=== PATIENT | male | born 1935 | race Caucasian/White ===

== ENCOUNTER → 2019-05-05 11:43 | Emergency (ER) | payer MEDICARE, OTHER ==
[~2019-05-05 11:43] MED LIST: Cephalexin CAP* 500 MG PO ONE; ED cefTRIAXone 1 GM/50 ML 1 GM/50 ML PREMIX.SET IVPB ONE
[2019-05-05 12:19] LABS: ABS Basophils 0.1 10^3/ul (0-0.2); ABS Eosinophils 0.2 10^3/ul (0-0.6); ABS Lymphocytes 1.9 10^3/ul (1.0-4.8); ABS Monocytes 0.8 10^3/ul (0-0.8); ABS Neutrophils 6.5 10^3/ul (1.5-7.7); Eosinophil % 2.4 %; Hematocrit 38 % (42-52); Hemoglobin 12.7 g/dL (14.0-18.0); Lymphocyte % 20.4 %; Mean Corpuscular HGB Conc 34 g/dL (31-36); Mean Corpuscular Hemoglobin 30 pg (27-31); Mean Corpuscular Volume 91 fL (80-94); Mean Platelet Volume 7.3 fL (7.4-10.4); Platelet Count 196 10^3/uL (150-450); Red Blood Count 4.18 10^6 /uL (4.18-5.48); Red Cell Distribution Width 15 % (10-15); White Blood Count 9.5 10^3/uL (3.5-10.8)
--- NOTE | 2019-05-05 12:24 | ED ---
Neurological HPI - HPI Summary HPI Summary: This patient is a 84 year old M BIBA to ED via EMS with a chief complaint of facial twitching since two days ago. Patient had an unwitnessed seizure last night that lasted less than a minute (hx seizures). Patient was unconscious for about a minute. He did not get much sleep last night, and the twitching has spread to the upper body this morning. He states he cannot feel the twitching. Per son, patient is at neurologic baseline otherwise. Patient is sent here after consulting with Dr. Marrero, neurologist. Patient had a similar episode of twitching followed by seizure four years ago. He has recently stopped taking Klonopin 3 days ago as NH thought it was causing acute agitation. The patient rates the pain 0/10 in severity. Patient denies complaints. - History of Current Complaint Chief Complaint: EDNeurologicalDeficit Stated Complaint: SEIZURE PER EMS Time Seen by Provider: 05/05/19 11:52 Hx Obtained From: Patient, Family/Econometrics Professor Onset/Duration: Gradual Onset, Started days ago - 2 days ago, Still Present, Worse Since Timing: Constant Current Severity: Moderate Number of Seizures: 1 Neurological Deficit Location: Facial - Facial twitching Pain Intensity: 0 Pain Scale Used: 0-10 Numeric Character: Other: - Twitching/upper body twitching Aggravating: Nothing Alleviating: Nothing Associated Signs and Symptoms: Negative: Fever - Allergy/Home Medications Allergies/Adverse Reactions: Allergies Allergy/AdvReac Type Severity Reaction Status Date / Time amoxicillin Allergy Unknown Verified 05/05/19 12:25 Reaction Details ibuprofen Allergy Unknown Verified 05/05/19 12:25 Reaction Details Penicillins Allergy Unknown Verified 05/05/19 12:25 Reaction Details Home Medications: Home Medications Acetaminophen [Tylenol] 650 mg PO BID 05/05/19 [History Confirmed 05/05/19] Cetirizine HCl [Zyrtec] 10 mg PO DAILY 05/05/19 [History Confirmed 05/05/19] Cholecalciferol (Vitamin D3) [Vitamin D3] 2,000 unit PO DAILY 05/05/19 [History Confirmed 05/05/19] Fluticasone NASAL SPRAY 50MCG* [Flonase NASAL SPRAY 50MCG*] 2 spray BOTH NARES DAILY 05/05/19 [History Confirmed 05/05/19] Lactase [Dairy Aid] 3,000 unit PO TID 05/05/19 [History Confirmed 05/05/19] dilTIAZem HCl [Dilt-Xr] 180 mg PO DAILY 05/05/19 [History Confirmed 05/05/19] PMH/Surg Hx/FS Hx/Imm Hx Cardiovascular History: Reports: Hx Coronary Artery Disease, Hx Hypertension, Hx Pacemaker/ICD - X FEW YEARS History: Reports: Hx Kidney Stones - LT Musculoskeletal History: Reports: Hx Arthritis - GENERALIZED Sensory History: Reports: Hx Cataracts - BILATERAL, Hx Contacts or Glasses - GLASSES, Hx Hearing Aid - HAS AID, DOESN'T USE (GETS RINGING IN EARS) Opthamlomology History: Reports: Hx Cataracts - BILATERAL, Hx Contacts or Glasses - GLASSES Neurological History: Reports: Hx Seizures - 10/2014 ONLY ONE, NO MEDS, Other Neuro Impairments/Disorders - Alzheimer's - Surgical History Surgery Procedure, Year, and Place: 2011 LEFT KIDNEY STONE [facility]. 1960s APPENDECTOMY. RIGHT GREAT TOE. 2010 PACEMAKER [facility] Hx Anesthesia Reactions: No - Immunization History Date of Tetanus Vaccine: Yes, date unk Date of Influenza Vaccine: Fall 2012 Infectious Disease History: No Infectious Disease History: Denies: Traveled Outside the [place] in Last 30 Days - Family History Known Family History: Positive: Non-Contributory - Social History Alcohol Use: Daily Alcohol Amount: 2-4 glasses wine daily Hx Substance Use: No Substance Use Type: Reports: None Hx Tobacco Use: Yes Smoking Status (MU): Former Smoker Type: Cigarettes Have You Smoked in the Last Year: No Review of Systems Negative: Fever Neurological: Other - Facial/upper body twitching All Other Systems Reviewed And Are Negative: Yes Physical Exam - Summary Physical Exam Summary: Constitutional: Well-developed, Well-nourished, Alert. (-) Distressed Skin: Warm, Dry HENT: Normocephalic; Atraumatic Eyes: Conjunctiva normal Neck: Musculoskeletal ROM normal neck. (-) JVD Cardio: Rhythm regular, rate normal, Heart sounds normal; Intact distal pulses; Radial pulses are 2+ and symmetric. (-) Murmur Pulmonary/Chest wall: Effort normal. (-) Respiratory distress, (-) Wheezes, (-) Rales Abd: Soft. (-) Tenderness, (-) Distension, (-) Guarding, (-) Rebound Musculoskeletal: (-) Edema Lymph: (-) Cervical adenopathy Neuro: alert and oriented to person and place but not time. Intermittent facial and upper trunk twitching. Strength normal, Cranial nerves II-XII are grossly intact. SILT, Strength 5/5 BUE and BLE, (-) Dysmetria, (-) Nystagmus, ambulates w steady gait. Psych: Mood and affect Normal GCS: 14 Triage Information Reviewed: Yes Vital Signs On Initial Exam: Initial Vitals Temp Pulse Resp BP Pulse Ox 97.8 F 61 16 123/84 96 05/05/19 11:49 05/05/19 11:49 05/05/19 11:49 05/05/19 11:49 05/05/19 11:49 Vital Signs Reviewed: Yes Diagnostics - Vital Signs Vital Signs Temp Pulse Resp BP Pulse Ox 05/05/19 12:00 60 94 05/05/19 11:52 63 95 05/05/19 11:49 97.8 F 61 16 123/84 96 - Laboratory Result Diagrams: 05/05/19 12:12 05/05/19 12:11 Lab Statement: Any lab studies that have been ordered have been reviewed, and results considered in the medical decision making process. - Radiology CXR Radiology Interpretation Completed By: Radiologist Summary of Radiographic Findings: No radiographic evidence for acute cardiopulmonary abnormality on this. portable chest x-ray. Dr. Emerson has reviewed this radiology report. - CT Brain CT Interpretation Completed By: Radiologist Summary of CT Findings: Stable chronic findings as described above without acute intracranial. abnormality. Dr. Emerson has reviewed this radiology report. - EKG 1203 Cardiac Rate: NL - [address] Segment: Normal Summary of EKG Findings: Atrial-paced complexes at 62 BPM, no STEMI. No change from prior EKG taken 2014. Re-Evaluation - Re-Evaluation First Eval Re-Evaluation Time: 15:28 Comment: Discussed results with patient and Dr. Marrero's recommendations for treatment of the twitching. UA consistent with UTI, so I will treat with Keflex at home. Course/Dx - Course Course Of Treatment: 84-year-old gentleman with a history of Alzheimer's and seizures who presents with facial twitching. - Unwitnessed seizure with no reported head trauma however check head CT given age and comorbidities and unreliable neurologic exam. Will also check basic labs to rule out infection including urinalysis and a chest x-ray. Will consult with neurologist when studies are back. - No visible signs of trauma on the patient. Otherwise normal physical exam aside from some twitching of the face - Diagnoses Provider Diagnoses: UTI (urinary tract infection), Facial twitching - Physician Notifications Discussed Care Of Patient With: Glendy Marrero Time Discussed With Above Provider: 12:38 Instructed by Provider To: Other - Discussed patient case with Dr. Marrero, neurologist, who recommended holding off on the head CT because the patient is at baseline. We will touch base again once the patient's bloodwork comes back to discuss medications. At 1431 discussed patient case with Dr. Marrero who evaluated the patient in the ED and recommended changes to the patient's medication (250mg valproic acid and 0.5mg Klonopin). He stated to wait for the patient's urine before discharging since the patient will follow-up with Dr. Terry this week. Discharge - Sign-Out/Discharge Documenting (check all that apply): Patient Departure - Discharge Patient Received Moderate/Deep Sedation with Procedure: No - Discharge Plan Condition: Stable Disposition: HOME Prescriptions: Cephalexin CAP* [Keflex CAP*] 500 mg PO QID 7 Days #28 cap clonazePAM [Klonopin] 0.5 mg PO EVERY OTHER DAY 14 Days #4 tablet MDD 1/2 tab Valproic Acid 250 mg PO QPM 30 Days #30 capsule Patient Education Materials: Urinary Tract Infection in Men (ED), Epilepsy (ED) Referrals: Stefania Diaz MD [Primary Care Provider] - 3 Days Additional Instructions: Please take 250 mg of valproic acid at night, and 0.5 mg of Klonopin every other day for 2 weeks Your labs showed a urinary tract infection, take keflex 500 four times a day for 7 days Follow up with primary care provider in 2-3 days. RETURN TO THE EMERGENCY DEPARTMENT WITH ANY NEW OR WORSENING SYMPTOMS. - Billing Disposition and Condition Condition: STABLE Disposition: Home - Attestation Statements Document Initiated by Scribe: Yes Documenting Scribe: Javon Lee Provider For Whom Danyibe is Documenting (Include Credential): Faith Emerson MD Scribe Attestation: Javon Alegre, scribed for Faith Emerson MD on 05/05/19 at 1714. Scribe Documentation Reviewed: Yes Provider Attestation: The documentation as recorded by the scribe, Javon Lee accurately reflects the service I personally performed and the decisions made by me, Faith Emerson MD Status of Scribe Document: Viewed
[2019-05-05 12:37] LABS: Albumin 4.1 g/dL (3.2-5.2); Albumin/Globulin Ratio 1.6 (1-3); BUN/Creatinine Ratio 16.7 (8-20); Calcium 9.6 mg/dL (8.6-10.3); EGFR African American 49.4 (>60); EGFR Non-African American 40.8 (>60); Globulin 2.5 g/dL (2-4); Potassium 4.5 mmol/L (3.5-5.0); Total Bilirubin 0.5 mg/dL (0.2-1.0); Total Protein 6.6 g/dL (6.4-8.9)
[2019-05-05 15:15] LABS: Urine Appearance Clear; Urine Bacteria Absent (Absent); Urine Bilirubin Negative (Negative); Urine Blood Negative (Negative); Urine Color Yellow; Urine Glucose Negative (Negative); Urine Ketones Negative (Negative); Urine Nitrite Positive (Negative); Urine Protein Negative (Negative); Urine Red Blood Cell Absent (Absent); Urine Specific Gravity 1.019 (1.010-1.030); Urine Urobilinogen Negative (Negative); Urine White Blood Cell 2+(11-20/hpf) (Absent)
[2019-05-05 15:24] LABS: TSH (Thyroid Stimulating Horm) 1.73 mcIU/mL (0.34-5.60)
[2019-05-05 16:27] VITALS: BP 104/60
--- NOTE | 2019-05-06 01:16 | CONS ---
NEUROLOGY CONSULTATION NOTE: DATE OF CONSULT: 05/05/19 CONSULTING PROVIDER: Dr. Faith Emerson. REASON FOR CONSULT: Possible seizure and facial twitching. CHIEF COMPLAINT: Seizure that took place yesterday. HISTORY OF PRESENT ILLNESS: Mr. 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 The history was mostly obtained from the patient's son, Emmie, and the patient's daughter, Thelma. I personally spoke to Thelma earlier this morning and recommended to bring the patient into the ER for further evaluation. I also reviewed the medical records at [facility] where the patient was being closely followed by Dr. Jaquez and then transferred care to Dr. Terry. The patient was at [facility] for the past one year. He had an episode yesterday where he had generalized body shaking, loss of awareness, worsening confusion for approximately 15 minutes. I spoke to Marleny, who is the nurse at [facility]. She stated that this is completely out of the ordinary for him and this is not the typical twitching that he occasionally has. The nursing staff are convinced that they witnessed a seizure that lasted approximately one minute, followed by postictal confusion that lasted for approximately 15 minutes. There was some reported generalized convulsion, but it was not clear. There was no history of loss of bowel or bladder functions. The patient otherwise seemed to be back to his baseline status. Last night, the family decided not to take him to the ER and continue observing him after the seizure- like episode. However, the patient was reported to have trouble sleeping throughout the night, and woke up with continuous twitching of the extremities and the face. This is the same twitching he had in the past, explained by Dr. Jaquez's previous evaluation. I reviewed the records from [facility] where the patient had facial twitching and was fighting in his sleep starting in 2014, and that is when he was started on Klonopin. Since then, the patient was taking Klonopin 1 mg nightly. However, for the past 3 months, the nursing facility staff members have noticed that he has significant behavioral problems when taking Klonopin. He has severe insomnia, agitation, and irritability. When holding the Klonopin dose at nighttime, the patient was able to sleep without any distress. Therefore, with the guidance of Dr. Terry, weaning off Klonopin was initiated three weeks ago. The patient started taking 1 mg tablet at night every other day for 1 week and then 0.5 mg every 1 week. He was completely off Klonopin 6 days ago. Since then, the patient has been sleeping well without any distress. However, last night due to the possible seizure, the patient had increase insomnia and twitching throughout his extremities. Today, the patient continues to have stimulus-induced facial twitching, but was able to communicate throughout the muscle movements. He has myoclonus in both upper extremities. He reports no distress and states "I am feeling fine." The patient has also been complaining of a 3- to 4-month history of neck tension and pain. The pain is worse at nighttime. He has been receiving acetaminophen with [id number] improvement. There has been no reported falls or loss of consciousness. Seizure history: the patient has history of a single seizure 10 years ago where he did not require treatment. He had a normal EEG four years ago. He has not had any further seizure activity. He has no history of meningitis or encephalitis. PAST MEDICAL HISTORY: Alzheimer's, allergies, hypertension, and neck pain. History of cataracts, he wears sunglasses. He has history of kidney stones. He has history of coronary artery disease, pacemaker ICD placement, hearing aids. HOME MEDICATIONS: 1. Pravastatin 80 mg p.o. at bedtime. 2. Fluoxetine 20 mg p.o. in the morning. 3. Aspirin 81 mg p.o. in the morning. 4. Allopurinol 300 mg p.o. in the morning. 5. Lisinopril 20 mg p.o. a.m. 6. Metoprolol 25 mg p.o. in the morning. 7. Memantine 10 mg p.o. b.i.d. 8. Diltiazem 180 mg p.o. daily. 9. Vitamin D3 2000 units p.o. daily. 10. Acetaminophen 650 mg daily. 11. Cetirizine 10 mg p.o. daily. FAMILY HISTORY: There is no family history reported for seizures or strokes. SOCIAL HISTORY: The patient is . He denied any tobacco or alcohol use. REVIEW OF SYSTEMS: A 14-point review of systems was otherwise negative, except for what was mentioned in the HPI. PHYSICAL EXAM: Vitals: Please note that the patient has multiple documented hypotension during this hospitalization. Blood pressure currently is 101/57. General: Ill-appearing elderly man, in no acute distress. Pleasantly demented. Head: Atraumatic, normocephalic. Neck: No nuchal rigidity. No lymphadenopathy. No carotid bruits. Neck is supple. Eyes: Conjunctivae/ corneas are clear. Chest: Clear to auscultation bilaterally with no wheezing or rhonchi. Cardiovascular: Regular rate and rhythm with normal S1 and S2. Extremities: Normal range of motion, with no hammertoes or high arches. Skin: No skin lesions or laceration. Psych: Flat affect, normal mood. Difficult to establish rapport given his dementia. He looked at my identification card and said "you have an interesting name." Neurological Examination: Alert, awake, and oriented to self and son, but not place or time. He has severe psychomotor slowing. His last MoCA completed in 2014 was as low as 15/30 due to significant delayed recall and executive dysfunction. Cranial Nerves: Pupils are equal, round, and reactive to light. Extraocular muscles are intact. No facial asymmetry. Tongue is symmetric and midline, with no atrophy or fasciculation. Motor Examination: 5/5 strength with normal tone and bulk. No asterixis. Reflexes are trace throughout the upper and lower extremities, 0 at the ankles bilaterally. Flexor Babinski responses. Sensation is intact to light touch. No tactile extinction. Coordination: Normal mbsdyx-mi-soce bilaterally. Gait was not assessed, but the patient does ambulate at baseline without assistance. DIAGNOSTIC STUDIES/LAB DATA: WBC of 9.5, hemoglobin of 12, hematocrit of 38, platelet count of 196. Sodium of 135, potassium 4.5, chloride of 101, BUN of 27 , creatinine 1.62. Urinalysis is pending. CT head without contrast showed chronic severe generalized atrophy with no evidence of hypodensity on either hemispheres. The patient has significant stenosis in the upper cervical spinal canal, which could be contributing to his neck pain. ASSESSMENT AND RECOMMENDATION: Mr. Sandro Ochoa is an 84-year-old man with history of end-stage Alzheimer's dementia, who has baseline myoclonus and facial twitching, who presented with witnessed seizure-like activity yesterday and increase in agitation and insomnia. 1. Episode of seizure like-activity and possible brief generalized convulsion: - The event lasted about one minute with some post-ictal confusion - The patient is at risk for developing seizures given the following factors: a. benzodiazepine withdrawal which can occur weeks after discontinuing the Klonopin; b. cerebral atrophy due to Alzheimer's disease; c. history of previously reported seizures of unknown etiology. - He has no evidence of electrolyte imbalance. We are waiting on a urinalysis to assess if he has any evidence of UTI. - CT head without contrast showed no evidence of a structural abnormality. He has severe diffuse cortical atrophy. 2. Increase in agitation and insomnia: - The nursing staff is convinced that Klonopin is the culprit. The patient is calm when Klonopin is not given. - Other differential diagnosis would be a UTI causing increase in agitation, seizures, pain induced, or progression in his dementia. 3. Severe upper cervical spinal stenosis seen on CT head: - Discussed this with the patient's son at bedside. The patient would not be a candidate for any further intervention. We discussed fall precautions. Hold off on any further work-up at this point. Defer pain control to the primary team. 4. Facial twitching and myoclonus: related to endstage Alzheimer's vs medication effect/withdrawal. Seizures are low on the differential given he is able to verbalize and communicate during these episodes. These abnormal movements are also dependent on stimulation (stimulus induced). Recommendations: - Restart Klonopin at a dose of 0.5 mg nightly every other night for the next 2 weeks. Continue weaning the Klonopin since there are reports of severe agitation and insomnia with the Klonopin over the past few weeks. - Start valproic acid 250 mg at night to help with some of his sundowning and to prevent further seizures related to benzodiazepine withdrawal. This is a low subtherapeutic dose and will need some adjustment, depending on how the patient tolerates the medication. - Ordered B12 and TSH to rule out metabolic causes of Delirium - Obtain an EEG as an outpatient. The patient is awake and appropriately responsive and not complaining of any distress, and all during the facial twitching and mild myoclonus. - Pending urinalysis. Defer treatment to the ED staff if it is positive - If he continues to have these abnormal movements after resuming Klonopin, I advised the family to have the patient come back for further evaluation - Follow-up with Dr. Terry. He has an upcoming appointment next week. Time spent: 65 minutes of which >50% was spent obtaining history, examining the patient, education and counseling, obtaining collateral information from Marleny ( nurse at the nursing facility), and updating the patient's family at bedside. [id number]/CPS #: [id number] PIPPA
== END | disposition home or self-care (01) ==
LOC: ED 11:43
DX: R25.3 Fasciculation (principal); N39.0 Urinary tract infection, site not specified; Z88.1 Allergy status to other antibiotic agents; Z88.0 Allergy status to penicillin; Z88.8 Allergy status to other drugs, medicaments and biological substances; Z79.899 Other long term (current) drug therapy; I25.10 Atherosclerotic heart disease of native coronary artery without angina pectoris; I10 Essential (primary) hypertension; Z95.0 Presence of cardiac pacemaker; Z87.891 Personal history of nicotine dependence; G30.9 Alzheimer's disease, unspecified; F02.80 Dementia in other diseases classified elsewhere, unspecified severity, without behavioral disturbance, psychotic disturbance, mood disturbance, and anxiety
CPT/HCPCS: 36415; 70450; 71045; 80053; 81003; 81015; 82607; 84443; 84484; 85025; 87086; 93005; 99284; A9270-GY

== ENCOUNTER 2019-05-24 11:52 | Inpatient (IN) | payer MEDICARE, OTHER ==
--- NOTE | 2019-05-24 12:02 | ED ---
Abdominal Pain/Male - HPI Summary HPI Summary: An 84 y/o male w hx dementia and seizurse who presents to [facility] with a chief complaint of abdominal pain since this morning. Patient is a poor historian 2/ 2 dementia and states pain isn't extremely bad but there is some discomfort. He rates his pain as a 3/10 in severity. He denies any vomiting, diarrhea, fevers, chest pain, back pain or dysuria. He denies a SHx on his abdomen. He does not have worsened pain with eating, no RUQ pain. The patient is disoriented to year which is baseline for him. Hx of facial tremors/adominal tremors previously on klonopin. - History of Current Complaint Stated Complaint: ABD PAIN Time Seen by Provider: 05/24/19 11:54 Hx Obtained From: Patient, EMS Onset/Duration: Sudden Onset, Lasting Hours, Still Present Timing: Constant Severity Initially: Mild Severity Currently: Mild Pain Intensity: 3 Pain Scale Used: 0-10 Numeric Location: Diffuse Radiates: No Character: Other: - unable to describe Aggravating Factor(s): Nothing Alleviating Factor(s): Nothing Associated Signs And Symptoms: Negative: Fever, Back Pain, Urinary Symptoms, Vomiting, Diarrhea - Allergies/Home Medications Allergies/Adverse Reactions: Allergies Allergy/AdvReac Type Severity Reaction Status Date / Time amoxicillin Allergy Unknown Verified 05/05/19 12:25 Reaction Details ibuprofen Allergy Unknown Verified 05/05/19 12:25 Reaction Details Penicillins Allergy Unknown Verified 05/05/19 12:25 Reaction Details Home Medications: Home Medications Metoprolol Succinate XL TAB* [Toprol XL TAB*] 25 mg PO DAILY 05/24/19 [History Confirmed 05/24/19] Phenol [Chloraseptic] 177 ml PO DAILY PRN 05/24/19 [History Confirmed 05/24/19] Saline NASAL SPRAY 0.65%* [Sodium Chloride 0.65% Nasal [place]*] 1 spray BOTH NARES Q4H PRN 05/24/19 [History Confirmed 05/24/19] PMH/Surg Hx/FS Hx/Imm Hx Cardiovascular History: Reports: Hx Coronary Artery Disease, Hx Hypertension, Hx Pacemaker/ICD - X FEW YEARS History: Reports: Hx Kidney Stones - LT Musculoskeletal History: Reports: Hx Arthritis - GENERALIZED Sensory History: Reports: Hx Cataracts - BILATERAL, Hx Contacts or Glasses - GLASSES, Hx Hearing Aid - HAS AID, DOESN'T USE (GETS RINGING IN EARS) Opthamlomology History: Reports: Hx Cataracts - BILATERAL, Hx Contacts or Glasses - GLASSES Neurological History: Reports: Hx Seizures - 10/2014 ONLY ONE, NO MEDS, Other Neuro Impairments/Disorders - Alzheimer's - Surgical History Surgery Procedure, Year, and Place: 2011 LEFT KIDNEY STONE [facility]. 1960s APPENDECTOMY. RIGHT GREAT TOE. 2010 PACEMAKER [facility] Hx Anesthesia Reactions: No - Immunization History Date of Tetanus Vaccine: Yes, date unk Date of Influenza Vaccine: Fall 2012 - Family History Known Family History: Positive: Non-Contributory - Social History Alcohol Use: Daily Alcohol Amount: 2-4 glasses wine daily Hx Substance Use: No Substance Use Type: Reports: None Hx Tobacco Use: Yes Smoking Status (MU): Former Smoker Type: Cigarettes Have You Smoked in the Last Year: No Review of Systems Negative: Fever Negative: Chest Pain Positive: Abdominal Pain. Negative: Vomiting, Diarrhea, Nausea Negative: dysuria Negative: Myalgia All Other Systems Reviewed And Are Negative: Yes Physical Exam - Summary Physical Exam Summary: Constitutional: Well-developed, Well-nourished, Alert. (-) Distressed Skin: Warm, Dry HENT: Normocephalic; Atraumatic Eyes: Conjunctiva normal Neck: Musculoskeletal ROM normal neck. (-) JVD, (-) Stridor, (-) Nuchal rigidity Cardio: Rhythm regular, rate normal, Heart sounds normal; Intact distal pulses; Radial pulses are 2+ and symmetric. (-) Murmur Pulmonary/Chest wall: Effort normal. (-) Respiratory distress, (-) Wheezes, (-) Rales Abd: Soft, Epigastric tenderness, (-) Distension, (-) Guarding, (-) Rebound, twitching of abdominal muscles Musculoskeletal: (-) Edema Lymph: (-) Cervical adenopathy Neuro: oriented to person and place not time, intermittent tremors and facial twitching Psych: Mood and affect Normal Triage Information Reviewed: Yes Vital Signs Reviewed: Yes Diagnostics - Laboratory Result Diagrams: 05/24/19 12:19 05/24/19 12:21 Lab Statement: Any lab studies that have been ordered have been reviewed, and results considered in the medical decision making process. - CT abdomen/pelvis CT Interpretation Completed By: Radiologist Summary of CT Findings: LEFT NEPHROLITHIASIS WITHOUT HYDRONEPHROSIS. ATHEROSCLEROSIS. ED physician has reviewed this imaging report. - EKG 12:13 Cardiac Rate: Other Rate - Atrial paced at 60 bpm Summary of EKG Findings: An EKG at 12:13 reveals atrial paced at 60 bpm. Re-Evaluation - Re-Evaluation First Eval Re-Evaluation Time: 14:50 Change: Unchanged Comment: CT shows 0.7 Cm left kidney stone without hydronephrosis, Pt still has persistent twitching, will consult neurology. Suspect pain 2/2 abdominal contraction not kidney stone. Abdominal Pain Male Course/Dx - Course Course Of Treatment: 84 y/o male w seizures, dementia who p/w Eepigastric abdominal pain. - PE epigastric abdominal tenderness, intermittent twitching of abdominal muscles otherwise unremarkable exam. Check labs including CBC to assess for infection, lipase for pancreatitis. Also consider renal stone given microscopic hematuria. Low suspicion SBO given multiple bowel movements. Consider infectious process as diverticulitis however patient denies fevers or diarrhea at this time. UA w/o WBC. also will touch base allergy given increase in facial twitching/concern for seizures - Diagnoses Provider Diagnoses: Seizures, Abdominal pain - Provider Notifications Discussed Care Of Patient With: Josef Stanford Time Discussed With Above Provider: 14:52 Instructed by Provider To: Other - concern that patient could be in status, Dr. Stanford will see the patient in the ED. Discharge - Sign-Out/Discharge Documenting (check all that apply): Patient Departure - admit Patient Received Moderate/Deep Sedation with Procedure: No - Discharge Plan Condition: Fair Disposition: ADMITTED TO [facility] Referrals: Stefania Diaz MD [Primary Care Provider] - - Billing Disposition and Condition Condition: FAIR Disposition: Admitted to [facility] - Attestation Statements Document Initiated by Scribe: Yes Documenting Scribe: Steven Ramirez Provider For Whom Louis is Documenting (Include Credential): Faith Emerson MD Scribe Attestation: Steven Alegre, scribed for Faith Emerson MD on 05/24/19 at 1557. Scribe Documentation Reviewed: Yes Provider Attestation: The documentation as recorded by the marileeibSteven boo accurately reflects the service I personally performed and the decisions made by me, Faith Emerson MD Status of Scribe Document: Viewed Consult Consult: At 15:[address] Dickey, hospitalist, who accepted the patient for admission.
[2019-05-24 12:43] LABS: Urine Appearance Clear; Urine Bacteria Absent (Absent); Urine Bilirubin Negative (Negative); Urine Blood Negative (Negative); Urine Color Yellow; Urine Glucose Negative (Negative); Urine Ketones Negative (Negative); Urine Nitrite Positive (Negative); Urine Protein Negative (Negative); Urine Red Blood Cell 3+(>10/hpf) (Absent); Urine Specific Gravity 1.016 (1.010-1.030); Urine Urobilinogen Negative (Negative); Urine White Blood Cell Trace(0-5/hpf) (Absent)
[2019-05-24 13:02] LABS: ABS Eosinophils 0.3 10^3/ul (0-0.6); ABS Lymphocytes 1.6 10^3/ul (1.0-4.8); ABS Monocytes 0.7 10^3/ul (0-0.8); ABS Neutrophils 5.2 10^3/ul (1.5-7.7); Eosinophil % 4.1 %; Hematocrit 38 % (42-52); Hemoglobin 12.7 g/dL (14.0-18.0); Lymphocyte % 20.7 %; Mean Corpuscular HGB Conc 34 g/dL (31-36); Mean Corpuscular Hemoglobin 31 pg (27-31); Mean Corpuscular Volume 91 fL (80-94); Mean Platelet Volume 7.5 fL (7.4-10.4); Platelet Count 186 10^3/uL (150-450); Red Blood Count 4.15 10^6 /uL (4.18-5.48); Red Cell Distribution Width 15 % (10-15); White Blood Count 7.8 10^3/uL (3.5-10.8)
[2019-05-24 13:13] LABS: Albumin 4.1 g/dL (3.2-5.2); Albumin/Globulin Ratio 1.8 (1-3); BUN/Creatinine Ratio 16.8 (8-20); C Reactive Protein 3.85 mg/L (<8.01); Calcium 8.9 mg/dL (8.6-10.3); EGFR African American 66.6 (>60); Globulin 2.3 g/dL (2-4); Total Bilirubin 0.5 mg/dL (0.2-1.0); Total Protein 6.4 g/dL (6.4-8.9)
[2019-05-24] MEDS ORDERED: Iodixanol* (CONTRAST) 320 MG/ML 100 ML SDV IV ONE (13:48)
[2019-05-24] MEDS ORDERED: clonazePAM TAB(*) 0.5 MG PO ONE ×2 (14:51→15:54)
[2019-05-24] MEDS ORDERED: Lorazepam PYXIS KEY PRN ×3 (15:29→20:19)
[2019-05-24] MEDS ORDERED: LORazepam INJ* 2 MG/ML 1 ML VIAL IV PUSH ONE ×2 (15:29→20:19)
[2019-05-24] MEDS ORDERED: Divalproex ER TAB(*) 250 MG PO ONE (15:41)
[2019-05-24] MEDS ORDERED: LORazepam INJ* 2 MG/ML 1 ML VIAL IV PUSH PRN ×2 (15:44→20:19)
[2019-05-24] MEDS ORDERED: Valproic Acid IV(*) 250 MG in NS 0.9% 100 ML* 100 ML IVPB ONE (15:51)
[2019-05-24] MEDS ORDERED: Ondansetron INJ* 2 MG/ML VIAL IV PRN (16:26)
[2019-05-24] MEDS ORDERED: Acetaminophen TAB* 325 MG PO PRN (16:26)
[2019-05-24] MEDS ORDERED: Saline NASAL SPRAY 0.65%* BTL BOTH NARES PRN (16:27)
[2019-05-24] MEDS ORDERED: Cyanocobalamin INJ * 1,000 MCG/ML VIAL 1 ML VIAL IM ONE (16:56)
[2019-05-24] MEDS ORDERED: Enoxaparin(*) 40 MG/0.4 ML SYR SUBCUT SCH (18:00)
--- NOTE | 2019-05-24 18:48 | HP ---
CC: Dr. Stefania Diaz; Dr. Moris Stanford * ADMISSION HISTORY AND PHYSICAL: DATE OF ADMISSION: 05/24/19 PRIMARY CARE PROVIDER: Dr. Stefania Diaz. MY ATTENDING WHILE IN THE HOSPITAL: Dr. Marisela Selby.* (DICTATED BY KADI MEZA) CONSULTING NEUROLOGIST: Dr. Moris Stanford. CHIEF COMPLAINT: Seizures x1 day. HISTORY OF PRESENT ILLNESS: Mr. Ochoa is an 84-year-old male with a past medical history of Alzheimer dementia; seizure disorder; coronary artery disease ; tachybrady syndrome, status post pacemaker; and atrial tachycardia syndrome, who presents to the emergency department for the second time in 2 weeks. The patient presented to the emergency department on 05/05/19 for a convulsion that had generalized body shaking and loss of awareness and worsening confusion for approximately 1 minute that occurred on 05/04/19. The patient had recently been weaned off of his Klonopin, which he has been on since 2014. He has only been off Klonopin for 6 days. The patient while he was brought into the hospital, started on a low dose Depakote at night after being seen in consultation by Dr. Glendy Marrero of Neurology, had a negative brain CT. This controlled the patient's seizures for approximately 2 weeks since then, but then this morning, the patient woke up and was having numerous episodes of facial twitching with some episodes of spasming down his body and into his abdomen. The patient had been feeling in his normal state of health. The patient had no illnesses. No fevers, chills, abdominal pain, or diarrhea. The patient's only other complaint is neck pain. The patient's twitching did not improve and he was sent to the emergency department for further evaluation. In the emergency department, the patient was seen in consultation by Dr. Moris Stanford of Neurology, who recommended EEG, which was performed showing ongoing seizure activity and recommended doubling up the patient's Depakote dose , giving IV Depakote now, and admitting to the ICU for close neurologic checks with p.r.n. Ativan for worsening generalized seizures. Due to concern for status epilepticus, we were asked to evaluate the patient for admission to the hospital. PAST MEDICAL HISTORY: Alzheimer dementia; hypertension; neck pain; cataracts; nephrolithiasis; coronary artery disease; tachy-alberto syndrome, status post pacemaker; thoracic aortic aneurysm; atrial tachycardia. PAST SURGICAL HISTORY: Pacemaker/ICD implantation, cardiac catheterization with stent placement. MEDICATIONS: 1. Pravastatin 80 mg p.o. at bedtime. 2. Fluoxetine 20 mg p.o. daily. 3. Aspirin 81 mg p.o. daily. 4. Zyloprim 300 mg p.o. daily. 5. Lisinopril 20 mg p.o. daily. 6. Memantine 10 mg p.o. b.i.d. 7. Diltiazem 180 mg p.o. daily. 8. Vitamin D3 2000 units p.o. daily. 9. Lactase 3000 units p.o. t.i.d. 10. Tylenol 650 mg p.o. b.i.d. 11. Fluticasone 2 sprays both nares daily. 12. Cetirizine 10 mg p.o. daily. 13. Valproic acid 250 mg p.o. daily. 14. Saline nasal spray 1 spray both nares q.4 hours as needed. 15. Metoprolol succinate 25 mg p.o. daily. 16. Chloraseptic 177 mL p.o. daily as needed. ALLERGIES: AMOXICILLIN, IBUPROFEN, PENICILLINS. FAMILY HISTORY: The patient's mother of old age at 102. The patient's father in his 50s of a stroke. The patient has 2 sisters, who of Alzheimer's complications. SOCIAL HISTORY: The patient smoked a pipe infrequently throughout his life. The patient drinks occasional alcohol. Never known to have illicit drug use. 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 The patient is for 2 years now, and has 2 children. The patient's surrogate decision maker will be his son MITCHELL REVIEW OF SYSTEMS: A 14-point review of systems was reviewed and is negative except as above in the HPI. PHYSICAL EXAMINATION GENERAL: The patient is an 84-year-old male, who appears stated age and sitting in the bed with intermittent twitching of his face. VITAL SIGNS: Temperature 97.9, pulse rate 61, respiratory rate 16, oxygen saturation 94% on room air, blood pressure 108/62. HEENT: Head: Normocephalic, atraumatic. Sclerae anicteric. No conjunctival injection. Nasal mucosa moist. Oral mucosa moist. No pharyngeal erythema, discharge, or exudate. NECK: Supple, nontender. No lymphadenopathy. No carotid bruits auscultated. No JVD. RESPIRATORY: Clear to auscultation bilaterally. No wheezes, rales, or rhonchi. Good air exchange bilaterally. CARDIAC: Regular rate and rhythm. No clicks, murmurs, gallops, or rubs. Pulses are 2+ in the bilateral dorsalis pedis, posterior tibialis, and radial areas. ABDOMEN: Soft, nontender, nondistended. Bowel sounds present and normoactive in all 4 quadrants. No hepatosplenomegaly. No abdominal bruits auscultated. No hepatojugular reflux. GENITOURINARY: No suprapubic or CVA tenderness. NEURO: Cranial nerves II through XII intact. Almost constant involuntary movements around the mouth. No other focal deficits. Alert and oriented only to self. PSYCHIATRIC: Pleasant and cooperative. SKIN: Clean, dry, and intact. No rash. DIAGNOSTIC STUDIES/LAB DATA: White blood cell count 7.8, hemoglobin 12.7, platelet count 186. Sodium 135, potassium 4.0, chloride 101, carbon dioxide 29 , anion gap 5, BUN 21, creatinine 1.25, glucose 114, calcium 8.9. Bilirubin 0.5 , AST 19, ALT 23, alkaline phosphatase 50. Troponin I 0.01. CRP 3.85. Protein 6.4, albumin 4.1, globulin 2.3, lipase 4.6. Urine: Yellow, clear, positive nitrite, trace leukocyte esterase, 3+ red blood cells. Studies: Abdomen and pelvis CT read as left nephrolithiasis without hydronephrosis, atherosclerosis. EKG shows atrial paced rhythm. No ST segment elevation or depression. No hypertrophy or enlargement. Normal axis. Compared to previous exam, there are no significant changes. ASSESSMENT AND PLAN: Impression: Mr. Ochoa is an 84-year-old male with past medical history significant for seizure disorder; Alzheimer dementia; hypertension; coronary artery disease; tachy-alberto syndrome, status post pacemaker implantation, who presents to the emergency department for the second time in 2 weeks for seizures. The patient was found to be in partial status epilepticus and will be admitted to the ICU for close monitoring. 1. Partial status epilepticus. The patient has almost constant seizure activity involving mainly the muscles around his mouth. This was confirmed by EEG in the emergency department. The patient will be admitted to the ICU, will have frequent neurologic checks. The patient has been given Depakote IV, Klonopin p.o. and Ativan IV, which have significantly decreased the frequency and severity of his seizures. The patient will be transitioned to Depakote orally b.i.d. as well as Klonopin 0.5 mg p.o. b.i.d. The patient will have valproic acid level checked now and further escalation to his dose may be needed. The patient will have Ativan as needed for uncontrollable seizure activity. The patient had a negative brain CT 2 weeks ago and Neurology does not recommend repeat brain CT at this time. The patient has no signs of infection at this time or other reversible provoking factors for his seizure. 2. Alzheimer's dementia. Supportive care. Continue memantine and Aricept. 3. Hypertension. The patient is currently normotensive. Continue lisinopril and metoprolol. 4. Coronary artery disease. Continue pravastatin, aspirin, and metoprolol. 5. Thoracic aortic aneurysm. No signs of dissection at this time. 6. FEN: The patient will have a heart-healthy diet without caffeine. Fluids are not indicated at this time. 7. Disposition: The patient is admitted to the hospital observation. 8. Code status: The patient would like to be a full code. The patient's surrogate decision maker will be his son. TIME SPENT: Approximately 60 minutes was spent on the admission of this patient , 30 of which was spent [id number] with the patient obtaining history and physical and discussing treatment plan. This plan was discussed with my attending, Dr. Marisela Selby, and she is in agreement. KADI MEZA [id number]/[facility] #: [id number] PIPPA
--- NOTE | 2019-05-24 19:30 | CONS ---
CC: Dr. Stefania Diaz; Dr. Antony Terry * CONSULTATION REPORT: DATE OF CONSULT: 05/24/19 LOCATION: Currently in ER bed 7. PRIMARY CARE PHYSICIAN: Stefania Diaz MD NEUROLOGIST: Dr. Antony Terry. REASON FOR CONSULT: Seizure-like activity. HISTORY OF PRESENT ILLNESS: Mr. Ochoa is a very nice 84-year-old gentleman who has a history of a seizure disorder diagnosed and treated by Dr. Jaquez for years, currently being treated by Dr. Terry. He has had one reported generalized tonic-clonic seizure about 10 years ago and had some additional seizure-like activity in the recent weeks. For years, he was treated with Klonopin 1 mg at night but the staff where he was living feels that that may have been changing his sleep habits and making him more agitated, affecting his mood. His son spoke with Dr. Terry and they decided to try weaning him off of the Klonopin very slowly, which was started several weeks ago. Initially, he tolerated the wean well, but on 05/04/19, he had an episode that sounds like a generalized tonic-clonic seizure where he lost awareness, was shaking in his entire body and was confused for approximately 15 minutes. There was no reported loss of bladder or bowel control and after he returned to his baseline , the family decided to watch him there. The next morning, he got up and was having more significant twitching that was similar to the twitching that he had had in the past. At the time that he was seen in the ER on 05/05/19, he has been off of the Klonopin for about a week. At that time, Dr. Marrero saw him in the ER and felt like he was having some myoclonic facial twitching. He decided to restart the Klonopin at 0.5 mg nightly every other night for 2 weeks and he also put him on a low dose of valproic acid 250 mg at night to help with some of his sundowning and to prevent further seizures related to benzodiazepine withdrawal. He ordered a B12 and TSH to rule out metabolic causes of delirium and he also was going to get an EEG as an outpatient. Initially after starting the Depakote, the patient did well. About a week ago, he finally finished Klonopin taper and for the last week, has done fairly well with no significant twitching. This morning, the family noticed that he was starting to have much more twitching and in fact, the twitching seemed to involve his entire body at times. He noted to his son that he was having neck pain related to the twitching and because of the tensing up, he was having some abdominal pain as well. These were happening quite frequently and at times, the son states that there were more generalized and the patient seemed to be out of it during the episode and could not remember the episode. While I was interviewing the patient, he had multiple episodes and my concern was that he might be in subclinical status. He was answering some questions appropriately, but he does have baseline dementia. I ordered a stat EEG, which was done; it did in fact show intermittent seizure activity associated with the facial twitching and body twitching. I gave him 1 mg of Ativan, which slowed the seizure activity on EEG, although he continued to have some mild twitching. At that time, I decided to give him 1 time dose of Depakote 250 mg IV. I spoke with the son and we decided at this point to try to adjust his medications. At the time that I left the ER, he was better having very rare facial twitches and was responsive and talking. The son states that his baseline dementia is fairly significant. He is oriented to person only. His son notes no prior history of head trauma or issues. No history of meningitis and no family history of seizures that he is aware of. He states that the seizure started 6 or 7 years ago. PAST MEDICAL HISTORY: Significant for is seizure-like activity, Alzheimer dementia, hypertension, cataracts, kidney stones, coronary artery disease with an ICD in place. MEDICATIONS: His current medication list: 1. Diltiazem 180 mg p.o. daily. 2. Valproic acid 250 mg p.o. q.p.m. 3. Saline nasal spray. 4. Pravachol 80 mg at bedtime. 5. Chloraseptic p.r.n. 6. Metoprolol XL 25 mg p.o. daily. 7. Memantine XR 10 mg p.o. b.i.d. 8. Lisinopril 20 mg p.o. q.a.m. 9. Lactase t.i.d. 10. Fluticasone daily. 11. Fluoxetine 20 mg p.o. q.a.m. 12. Calciferol 2000 units p.o. daily. 13. Cetirizine. 14. Aspirin 81 mg daily. 15. Allopurinol 300 mg in the morning. 16. Tylenol p.r.n. ALLERGIES: AMOXICILLIN, IBUPROFEN, and PENICILLINS. FAMILY HISTORY: Significant for strokes in his father. SOCIAL HISTORY: He lives at [facility]. Denies tobacco or alcohol use. REVIEW OF SYSTEMS: Review of systems in 14-organ systems was noted above, otherwise negative. PHYSICAL EXAM: Vital signs are stable, 116/59, heart rate in the 60s, respiratory rate 13 to 22, O2 sats of 94%. In general, he is a well-nourished, well-developed gentleman, sitting in his hospital bed with his head at approximately 45 degrees. His son is at the bedside. He is very pleasant, well dressed, well groomed. HEENT: He is normocephalic, atraumatic. Sclerae are anicteric. Mucous membranes are moist. Oropharynx is clear. Good dentition. Neck is supple. Chest: Clear to auscultation bilaterally. Cardiovascular: Regular rate and rhythm. Abdomen is nontender, obese. Extremities: There is no significant clubbing, cyanosis, or edema. His skin is warm and dry. On neurologic exam, he is awake, alert, oriented to person only. His speech is fluent with no dysarthria appreciated. His mood is somewhat depressed. Affect, mood congruent. Cranial Nerves: Pupils are equal , round, and reactive to light and accommodation. Extraocular muscles are intact. Visual vidales are grossly full. No nystagmus appreciated. Facial sensation grossly intact. Face is symmetric bilaterally. Tongue is midline. Palate raises symmetrically. Motor Exam: He spontaneously moves all extremities antigravity, good tone and bulk. He has good resistance 5/5 in the upper and lower extremities proximally and distally. Sensation grossly intact to light touch throughout. DTRs were down, 1+ at the biceps and brachioradialis , 1+ at the patella bilaterally. [id number] and rapid alternating movements were intact. He did have notable grimacing and shaking-like movements of the face, stereotypical in nature that happened repeatedly during our examination about every 20 seconds. These were not associated with any loss of consciousness or bladder or bowel incontinence. There was no tongue biting appreciated. I did not walk him at this time. DIAGNOSTIC STUDIES/LAB DATA: Lab work includes a white count of 7.8, hemoglobin of 12.7, hematocrit of 38, otherwise normal CBC with diff. Chemistry : Creatinine 1.25, glucose 114. Previous vitamin B12 of 173. TSH of 1.73. Troponin 0. UA positive for nitrite, 3+ rbc's, trace leukocyte esterase. He had a CT of the brain done on 05/05/19, showed atrophy but no acute changes. He did have an EEG done back in January 2015; at that time, it was within normal limits, no epileptiform discharge is seen. ASSESSMENT AND PLAN: Mr. Ochoa is an 84-year-old gentleman with a history of Alzheimer dementia, a history of longstanding seizure-like activity, previously seen by Dr. Jaquez and treated with Klonopin 1 mg at bedtime for years with good results. Recently, the staff at his care facility noted that he might be having some worsening agitation and mood changes as well as some sleep issues and they were curious if he could come off of the Klonopin. Dr. Terry agreed that weaning the Klonopin was reasonable and a slow taper was started. Ultimately, the patient started to have twitching movements again and at one point, seemed to have a generalized tonic-clonic seizure with some alteration of consciousness in a postictal state. He did come to the hospital about 2 to 3 weeks ago and at that time, Dr. Marrero saw him and felt that he might be having some myoclonic-like jerks. His Klonopin was added back and the taper was continued slowly and he was started on 250 mg of valproic acid at night, which he seemed to tolerate and do well on until today. About a week ago , he has finished his Klonopin taper and the symptoms returned. Today, he had several severe episodes to the point where he was having some abdominal pain and neck pain. In the ER, EEG was consistent with intermittent seizure activity associated with the movements. Ativan was given in the ER, which helped to break the seizure pattern and he is being admitted now for monitoring and medication adjustment. PLAN: 1. Admit to the ICU for close neuro checks and monitoring overnight. 2. I am going to add back Klonopin for now 0.5 mg p.o. b.i.d. I will give him 1 dose now in the ER. He did receive Ativan 1 mg in the ER as well. 3. I am going to increase his Depakote to 250 mg b.i.d. from q.h.s. I am going to give him an extra dose of Depakote 250 mg IV x1 now. 4. Seizure precautions. 5. Ativan p.r.n. for seizure activity greater than 5 to 10 minutes. 6. I will give him an injection of B12; something we will need to follow long- term and he can have further treatment as an outpatient given his low B12 in April and history of dementia. 7. He had recent CT of the head, which showed no acute issues. Because he is presenting with very similar symptoms and his neuro exam is otherwise not focal , I do not think we need to repeat any imaging at this time. If he does well overnight, is back to his baseline, I think he can go home tomorrow. He will be admitted under observation. I will continue to follow him and make further recommendations as necessary. Thank you for the opportunity to participate in the care of this very interesting patient. [id number]/[facility] #: [id number] PIPPA
[2019-05-24] MEDS: clonazePAM TAB(*) 0.5 MG PO SCH (20:30)
[2019-05-24] MEDS: CMCS: Lactase Enzyme (NF) 3,000 UNIT TAB PO SCH (20:34)
[2019-05-24] MEDS: Memantine TAB* 10 MG PO SCH (20:35)
--- NOTE | 2019-05-24 20:54 | EEG ---
ELECTROENCEPHALOGRAPHY: DATE OF STUDY: 05/24/19 ORDERING DOCTOR: Dr. Moris Stanford. CLINICAL PROBLEM: Mr. Ochoa is an 84-year-old gentleman with history of seizures and Alzheimer's disease, who is treated with clonazepam. He was brought into the emergency room after stopping clonazepam and was started on Depakote. His movement seem to stop until this morning when he was brought back to the emergency room. A slow taper of clonazepam to quarter tablet every other day was described, with recent cessation. This EEG was recorded in the emergency room and the patient's son was present. REPORT: This was a 16-channel EEG performed with video in the emergency room. In the beginning of the record, there was regular generalized discharges noted. Soon after the record began, there were sharp discharges noted phase reversal in the left parietal region around P3 electrode. Sharply contoured slower waves were noted around the P4 electrode on the contralateral side. He then went on to have repeat generalized discharges. Clinically, this was associated with facial grimacing movements. The discharges were frequent and could last as short as 1 second, but could go as long as up to approximately 9 seconds. Often, there were brief breaks in between each discharge. In between discharges, background activity could be seen at times at 7 Hz alpha rhythm, at other times it would show sharply contoured waves noted in bilateral parietal regions. Often, these sharp discharges came prior to the generalized discharges. Part way through the record, the patient received 1 mg of Ativan. After this occurred, there was marked improvement in the background rhythm with decreased frequency of generalized discharges. There was some beta activity. Again, sharply contoured theta was noted in the bilateral parietal region, at times with sharp waves with phase reversal suggesting epileptiform activity. CLINICAL IMPRESSION: This was an abnormal EEG. There was evidence of epileptiform activity noted during most of the recording. Clinical correlate was made of the generalized discharges and facial grimacing movements noted during the recording. Both generalized discharges were noted, as well as bilateral parietal discharges. There was marked improvement with treatment with Ativan. These findings could be consistent with partial status. [id number]/[facility] #: [id number] [facility]
[2019-05-24] MEDS ORDERED: Divalproex ER TAB(*) 250 MG PO SCH (21:00)
[2019-05-24] MEDS ORDERED: Atorvastatin* 20 MG TAB PO SCH (21:00)
[2019-05-24] MEDS ORDERED: Acetaminophen TAB* 325 MG PO SCH (21:00)
[2019-05-24] MEDS ORDERED: Magnesium Sulfate 1 GM IV* 1 GM/100 ML BAG IV ONE (23:00)
--- NOTE | 2019-05-25 00:45 | PN ---
Progress Note - Progress Note Date of Service: 05/25/19 Note: Pt was agitated an received a total of 3 mg of IV Ativan. Now appears to be sleeping but noted intermittent twitching in b/l LE's. On exam resists eye opening b/l, increased muscle tone and cogwheel rigidity in b/l UE's. Pupils ( difficult to assess since pt not cooperating with exam)-equal and reactive. D/w DR. Stanford : will tx with Valproic Acid IV 750 mg.
[2019-05-25 00:58] LABS: Urine Appearance Clear; Urine Bacteria Absent (Absent); Urine Bilirubin Negative (Negative); Urine Blood Negative (Negative); Urine Color Straw; Urine Glucose Negative (Negative); Urine Ketones Negative (Negative); Urine Nitrite Positive (Negative); Urine Protein Negative (Negative); Urine Red Blood Cell Absent (Absent); Urine Specific Gravity 1.013 (1.010-1.030); Urine Urobilinogen Negative (Negative); Urine White Blood Cell Trace(0-5/hpf) (Absent)
[2019-05-25] MEDS ORDERED: Valproic Acid IV(*) 750 MG in NS 0.9% 100 ML* 100 ML IVPB ONE (01:00)
[2019-05-25 05:25] LABS: ABS Basophils 0.1 10^3/ul (0-0.2); ABS Eosinophils 0.5 10^3/ul (0-0.6); ABS Lymphocytes 2.1 10^3/ul (1.0-4.8); ABS Monocytes 0.6 10^3/ul (0-0.8); ABS Neutrophils 4.8 10^3/ul (1.5-7.7); Eosinophil % 5.8 %; Hematocrit 37 % (42-52); Hemoglobin 12.6 g/dL (14.0-18.0); Mean Corpuscular HGB Conc 34 g/dL (31-36); Mean Corpuscular Hemoglobin 30 pg (27-31); Mean Corpuscular Volume 90 fL (80-94); Mean Platelet Volume 7.4 fL (7.4-10.4); Platelet Count 166 10^3/uL (150-450); Red Blood Count 4.14 10^6 /uL (4.18-5.48); Red Cell Distribution Width 15 % (10-15); White Blood Count 8.1 10^3/uL (3.5-10.8)
[2019-05-25 05:37] LABS: BUN/Creatinine Ratio 14.3 (8-20); EGFR African American 75.6 (>60); EGFR Non-African American 62.5 (>60); Magnesium 2.3 mg/dL (1.9-2.7); Potassium 4.1 mmol/L (3.5-5.0)
--- NOTE | 2019-05-25 07:54 | PN ---
Subjective Date of Service: 05/25/19 Length of Stay: 1 Days Interval History: Difficult night last night, I was contacted by Dr. Davis for repeated seizure like episodes, confusion. He was given a total of 3 mg Ativan from around 8-9: [address] Davis to load with Valproic acid IV 750mg. Seizure activity was notable for twitching of the bilateral lower extremities, resting eye opening, increased muscle tone in the upper extremities bilaterally. At one point last night, there was evidence of ectopy. This morning, he is somnolent and sleeping but does awaken and is confused and agitated. He forcefully resists movement and eye opening and with repeated attempts, he stated "I am not going to let you shine that light in my eyes." He did follow some commands at time. I spoke with his son who notes that he was more confused last night and apparently some of the behavior was similar to his prior behavior that precipitated the consideration to come off of Klonopin. Son is at the bedside. Studies: CT this am: No acute changes. Chronic age related with involution EEG: Clinical Impression: This was an abnormal EEG. There was evidence of epileptiform activity noted during most of the recording. Clinical correlate was made with the generalized discharges and facial grimacing movements noted during the recording. Both generalized discharges were noted, as well as bilateral parietal discharges. There was marked improvement with treatment with Ativan. These findings could be consistent with partial status. Objective Active Medications: Acetaminophen (Tylenol Tab*) 650 mg PO Q6H PRN PRN Reason: MILD PAIN or TEMP > 100.4 Acetaminophen (Tylenol Tab*) 650 mg PO BID [facility] Last Admin: 05/24/19 20:29 Dose: 650 mg Allopurinol (Zyloprim Tab*) 300 mg PO QAM [facility] Aspirin (Aspirin 81 Mg Chew Tab*) 81 mg PO QAM [facility] Atorvastatin Calcium (Lipitor*) 20 mg PO BEDTIME [facility]; Protocol Last Admin: 05/24/19 20:31 Dose: 20 mg Cetirizine HCl (Zyrtec*) 10 mg PO DAILY [facility] Cholecalciferol (Vitamin D Tab*) 2,000 units PO DAILY [facility] Clonazepam (Klonopin Tab(*)) 0.5 mg PO BID [facility] Last Admin: 05/24/19 20:30 Dose: 0.5 mg Diltiazem HCl (Cardizem Cd Cap*) 180 mg PO DAILY [facility] Divalproex Sodium (Depakote Er Tab(*)) 250 mg PO BID [facility] Last Admin: 05/24/19 20:31 Dose: 250 mg Enoxaparin Sodium (Lovenox(*)) 40 mg SUBCUT Q24H [facility] Last Admin: 05/24/19 18:44 Dose: 40 mg Fluoxetine HCl (Prozac Cap*) 20 mg PO QAM [facility] Fluticasone Propionate (Flonase Nasal [place] 50mcg*) 2 spray BOTH NARES DAILY [facility] Lactase (Lactaid Fast [place] (Nf)) 3,000 unit PO TID [facility] Last Admin: 05/24/19 20:34 Dose: 3,000 unit Lisinopril (Prinivil Tab*) 20 mg PO QAM [facility] Lorazepam (Ativan Inj*) 1 mg IV PUSH Q10M PRN PRN Reason: Seizures Lorazepam (Ativan Inj*) 1 mg IV PUSH Q4H PRN PRN Reason: ANXIETY Last Admin: 05/24/19 21:39 Dose: 1 mg Memantine (Namenda Tab*) 10 mg PO BID [facility] Last Admin: 05/24/19 20:35 Dose: 10 mg Metoprolol Succinate (Toprol Xl Tab*) 25 mg PO DAILY [facility] Miscellaneous (Ativan Pyxis [place]) 1 ea N/A .ATIVAN IV [place] PRN PRN Reason: PYXIS [place] Ondansetron HCl (Zofran Inj*) 4 mg IV Q6H PRN PRN Reason: NAUSEA Sodium Chloride (Sodium Chloride 0.65% Nasal [place]*) 1 spray BOTH NARES Q4H PRN PRN Reason: CONGESTION Vital Signs 05/24/19 05/24/19 05/24/19 11:58 12:05 12:06 Temperature 97.9 F Pulse Rate 64 60 60 Respiratory 17 17 27 Rate Blood Pressure 98/66 124/65 (mmHg) O2 Sat by Pulse 95 93 95 Oximetry 05/24/19 05/24/19 05/24/19 12:35 13:00 13:06 Temperature Pulse Rate Respiratory 22 19 17 Rate Blood Pressure 103/65 98/68 (mmHg) O2 Sat by Pulse Oximetry 05/24/19 05/24/19 05/24/19 13:36 14:17 15:00 Temperature Pulse Rate 64 Respiratory 22 13 17 Rate Blood Pressure 116/59 (mmHg) O2 Sat by Pulse 94 Oximetry 05/24/19 05/24/19 05/24/19 15:36 15:59 16:01 Temperature Pulse Rate 60 60 Respiratory 16 19 16 Rate Blood Pressure 120/100 (mmHg) O2 Sat by Pulse 94 94 Oximetry 05/24/19 05/24/19 05/24/19 16:06 16:36 17:00 Temperature Pulse Rate 62 Respiratory 19 16 19 Rate Blood Pressure 112/74 108/62 (mmHg) O2 Sat by Pulse 94 Oximetry 05/24/19 05/24/19 05/24/19 17:05 17:35 18:00 Temperature Pulse Rate Respiratory 17 17 19 Rate Blood Pressure 114/74 112/76 (mmHg) O2 Sat by Pulse Oximetry 05/24/19 05/24/19 05/24/19 18:33 18:37 18:51 Temperature 98.1 F Pulse Rate 60 Respiratory 22 11 20 Rate Blood Pressure 116/90 122/67 122/67 (mmHg) O2 Sat by Pulse 95 Oximetry 05/24/19 05/24/19 05/24/19 19:00 19:05 19:35 Temperature Pulse Rate 64 Respiratory 19 16 11 Rate Blood Pressure 111/84 116/61 (mmHg) O2 Sat by Pulse 96 Oximetry 05/24/19 05/24/19 05/24/19 20:01 20:25 20:30 Temperature Pulse Rate 60 60 Respiratory 17 15 18 Rate Blood Pressure 110/60 111/68 (mmHg) O2 Sat by Pulse 93 94 Oximetry 05/24/19 05/24/19 05/24/19 21:00 21:01 21:21 Temperature 97.7 F Pulse Rate 60 64 62 Respiratory 15 19 11 Rate Blood Pressure 123/72 116/61 (mmHg) O2 Sat by Pulse 96 97 96 Oximetry 05/24/19 05/24/19 05/24/19 21:31 21:39 22:00 Temperature Pulse Rate 65 70 Respiratory 23 19 24 Rate Blood Pressure 129/120 (mmHg) O2 Sat by Pulse 96 95 Oximetry 05/24/19 05/24/19 05/24/19 22:20 23:00 23:01 Temperature Pulse Rate 62 60 60 Respiratory 18 18 18 Rate Blood Pressure 120/70 124/71 (mmHg) O2 Sat by Pulse 95 94 95 Oximetry 05/24/19 05/24/19 05/25/19 23:30 23:32 00:00 Temperature 98.2 F Pulse Rate 62 60 Respiratory 15 17 Rate Blood Pressure 128/73 (mmHg) O2 Sat by Pulse 92 93 Oximetry 05/25/19 05/25/19 05/25/19 00:01 00:02 00:31 Temperature Pulse Rate 61 60 61 Respiratory 16 15 17 Rate Blood Pressure 143/73 147/82 (mmHg) O2 Sat by Pulse 96 94 92 Oximetry 05/25/19 05/25/19 05/25/19 01:00 01:30 02:00 Temperature 96.4 F 96.3 F Pulse Rate 61 60 60 Respiratory 12 12 13 Rate Blood Pressure 139/73 134/83 133/84 (mmHg) O2 Sat by Pulse 93 94 93 Oximetry 05/25/19 05/25/19 05/25/19 02:02 02:30 02:45 Temperature 97.9 F Pulse Rate 60 60 Respiratory 12 12 Rate Blood Pressure 107/80 (mmHg) O2 Sat by Pulse 95 92 Oximetry 05/25/19 05/25/19 05/25/19 03:01 03:09 03:30 Temperature 98.2 F Pulse Rate 60 60 Respiratory 12 11 Rate Blood Pressure 106/74 132/76 (mmHg) O2 Sat by Pulse 92 94 Oximetry 05/25/19 05/25/19 05/25/19 04:00 04:01 04:30 Temperature Pulse Rate 60 60 60 Respiratory 13 12 20 Rate Blood Pressure 128/73 133/79 (mmHg) O2 Sat by Pulse 94 94 98 Oximetry 05/25/19 05/25/19 05/25/19 05:00 05:30 05:47 Temperature Pulse Rate 60 60 Respiratory 17 18 16 Rate Blood Pressure 127/79 141/79 (mmHg) O2 Sat by Pulse 99 98 Oximetry 05/25/19 05/25/19 05/25/19 06:00 06:01 06:30 Temperature Pulse Rate 60 60 Respiratory 14 11 11 Rate Blood Pressure 144/89 133/73 (mmHg) O2 Sat by Pulse 99 99 Oximetry 05/25/19 07:00 Temperature Pulse Rate 60 Respiratory 12 Rate Blood Pressure 129/75 (mmHg) O2 Sat by Pulse 99 Oximetry Intake and Output Last 24 Hours 05/23/19 05/24/19 05/25/19 05/26/19 06:59 06:59 06:59 06:59 Intake Total 410 Output Total 2299 Balance -1889 Weight 158 lb 15.253 oz Intake: IV Fluids 300 IVPB 110 Output: Urine 175 Moore 1125 Residual 999 16 Fr Temperature Probe 999 Other: Estimated Void Small # Voids 1 Oxygen Devices in Use Now: Nasal Cannula Neurology Exam: General: Well nourished, well developed, lying in bed, occasional twitching movements HEENT: Normocephalic/atraumatic, mucous membranes moist Neck: Supple Chest: Clear to auscultation bilaterally Cardiovascular: Regular rate and rhythm Abdomen: Soft, non-tender/non-distended Extremities: No clubbing, cyanosis, or edema, skin is warm and dry Neurological Findings: Lying with his eyes closed, occasional twitching of the facial muscles right greater than left with occasional twitches of the arms right greater than left. Forcefully resisting exam, appears to be awake and will speak at times. Agitated, asking me to "leave me alone." Speech: When agitated he will tell me to stop. Appears fluent Cranial Nerve: Will not open his eyes, face symmetric bilaterally, hearing intact to finger rub bilaterally, palate elevates symmetrically, tongue midline, Motor: Forcefully resisting my exam, good strength in all extremities Sensation: WD to pain X 4 with grimace and yells "stop" Deep Tendon Reflex: 2+ symmetric in the upper/lower extremities Occasional twitching as noted above Result Diagrams: 05/25/19 05:00 05/25/19 05:00 Microbiology and Other Data: Microbiology 05/24/19 20:40 Nasal Screen MRSA (PCR) - Final Nasal Mrsa Not Detected Assessment/Plan Mr. Ochoa is an 84-year-old gentleman with a history of Alzheimer dementia, a history of longstanding seizure-like activity, previously seen by Dr. Jaquez and treated with Klonopin 1 mg at bedtime for years with good results, history of Pacemaker. Recently, the staff at his care facility noted that he might be having some worsening agitation and mood changes as well as some sleep issues and they were curious if he could come off of the Klonopin. Dr. Terry agreed that weaning the Klonopin was reasonable and a slow taper was started. Ultimately, the patient started to have twitching movements again and at one point, seemed to have a generalized tonic-clonic seizure with some alteration of consciousness in a postictal state. He did come to the hospital about 2 to 3 weeks ago and at that time, Dr. Marrero saw him and felt that he might be having some myoclonic-like jerks. His Klonopin was added back and the taper was continued slowly and he was started on 250 mg of valproic acid at night, which he seemed to tolerate and do well on until today. About a week ago, he has finished his Klonopin taper and the symptoms returned. Today, he had several severe episodes to the point where he was having some abdominal pain and neck pain. In the ER, EEG was consistent with seizure activity correlated with the movements. Ativan was given in the ER, which helped to break the seizure pattern and he is being admitted now for monitoring and medication adjustment. Events overnight as noted in HPI. Continued seizure like activity with possible ectopy and AICD firing. Concern remains for partial status PLAN: 1. Continue ICU monitoring 2. Will start Depakote IV 500mg bid for now. Plan to check a level this am. Last dose 750mg last night. Once he is taking PO, I would like to continue the Klonopin 0.5mg po bid for the short term as he had been previously controlled on this 3. CT head pending 4. Seizure precautions. 5. Ativan p.r.n. for seizure activity greater than 5 to 10 minutes. 6. Ectopy. Consult Dr. Singh, spoke with him 7. My threshold for transfer, given the fact that we have no prison monitoring is low. If he continues to have poorly controlled seizure activity, we will consider transfer to a higher level of care. 8. Dementia: Complicated the picture. Apparently there was some concern about Klonopin causing more agitation which precipitated decision to wean. I think, short term, we may want to continue this to stabilize as he was so well controlled for years on it. Fpc, Depakote might be a better solution given his dementia and mood changes.
--- NOTE | 2019-05-25 08:36 | PN ---
Subjective Date of Service: 05/25/19 Interval History: Pt is somnolent, he does not wake up to answer any questions. Objective Active Medications: Acetaminophen (Tylenol Tab*) 650 mg PO Q6H PRN PRN Reason: MILD PAIN or TEMP > 100.4 Acetaminophen (Tylenol Tab*) 650 mg PO BID [facility] Last Admin: 05/24/19 20:29 Dose: 650 mg Allopurinol (Zyloprim Tab*) 300 mg PO QAM [facility] Aspirin (Aspirin 81 Mg Chew Tab*) 81 mg PO QAM [facility] Atorvastatin Calcium (Lipitor*) 20 mg PO BEDTIME [facility]; Protocol Last Admin: 05/24/19 20:31 Dose: 20 mg Cetirizine HCl (Zyrtec*) 10 mg PO DAILY [facility] Cholecalciferol (Vitamin D Tab*) 2,000 units PO DAILY [facility] Clonazepam (Klonopin Tab(*)) 0.5 mg PO BID [facility] Last Admin: 05/24/19 20:30 Dose: 0.5 mg Diltiazem HCl (Cardizem Cd Cap*) 180 mg PO DAILY [facility] Enoxaparin Sodium (Lovenox(*)) 40 mg SUBCUT Q24H [facility] Last Admin: 05/24/19 18:44 Dose: 40 mg Fluoxetine HCl (Prozac Cap*) 20 mg PO QAM [facility] Fluticasone Propionate (Flonase Nasal [place] 50mcg*) 2 spray BOTH NARES DAILY [facility] Valproic Acid 500 mg/ Sodium (Chloride) 105 mls @ 210 mls/hr IVPB Q12HR [facility] Lactase (Lactaid Fast Act (Nf)) 3,000 unit PO TID [facility] Last Admin: 05/24/19 20:34 Dose: 3,000 unit Lisinopril (Prinivil Tab*) 20 mg PO QAM [facility] Lorazepam (Ativan Inj*) 1 mg IV PUSH Q10M PRN PRN Reason: Seizures Lorazepam (Ativan Inj*) 1 mg IV PUSH Q4H PRN PRN Reason: ANXIETY Last Admin: 05/24/19 21:39 Dose: 1 mg Memantine (Namenda Tab*) 10 mg PO BID [facility] Last Admin: 05/24/19 20:35 Dose: 10 mg Metoprolol Tartrate (Lopressor Iv*) 5 mg IV Q6H [facility] Miscellaneous (Ativan Pyxis [place]) 1 ea N/A .ATIVAN IV [place] PRN PRN Reason: PYXIS [place] Ondansetron HCl (Zofran Inj*) 4 mg IV Q6H PRN PRN Reason: NAUSEA Vital Signs - 8 hr 05/25/19 05/25/19 05/25/19 00:31 01:00 01:30 Temperature 96.4 F 96.3 F Pulse Rate 61 61 60 Respiratory 17 12 12 Rate Blood Pressure 147/82 139/73 134/83 (mmHg) O2 Sat by Pulse 92 93 94 Oximetry 05/25/19 05/25/19 05/25/19 02:00 02:02 02:30 Temperature Pulse Rate 60 60 60 Respiratory 13 12 12 Rate Blood Pressure 133/84 107/80 (mmHg) O2 Sat by Pulse 93 95 92 Oximetry 05/25/19 05/25/19 05/25/19 02:45 03:01 03:09 Temperature 97.9 F 98.2 F Pulse Rate 60 Respiratory 12 Rate Blood Pressure 106/74 (mmHg) O2 Sat by Pulse 92 Oximetry 05/25/19 05/25/19 05/25/19 03:30 04:00 04:01 Temperature Pulse Rate 60 60 60 Respiratory 11 13 12 Rate Blood Pressure 132/76 128/73 (mmHg) O2 Sat by Pulse 94 94 94 Oximetry 05/25/19 05/25/19 05/25/19 04:30 05:00 05:30 Temperature Pulse Rate 60 60 60 Respiratory 20 17 18 Rate Blood Pressure 133/79 127/79 141/79 (mmHg) O2 Sat by Pulse 98 99 98 Oximetry 05/25/19 05/25/19 05/25/19 05:47 06:00 06:01 Temperature Pulse Rate 60 60 Respiratory 16 14 11 Rate Blood Pressure 144/89 (mmHg) O2 Sat by Pulse 99 99 Oximetry 05/25/19 05/25/19 05/25/19 06:30 07:00 08:00 Temperature 97.6 F Pulse Rate 60 Respiratory 11 12 Rate Blood Pressure 133/73 129/75 (mmHg) O2 Sat by Pulse 99 Oximetry Oxygen Devices in Use Now: Nasal Cannula Appearance: Elderly male lying flat in bed, somnolent, NAD Ears/Nose/Mouth/Throat: Mucous Membranes Moist Respiratory: Symmetrical Chest Expansion and Respiratory Effort, Clear to Auscultation - anteriorly Cardiovascular: NL Sounds; No Murmurs; No JVD, RRR, No Edema Abdominal: NL Sounds; No Tenderness; No Distention Extremities: No Clubbing, Cyanosis Skin: No Nodules or Sclerosis Neurological: - - Somnolent Result Diagrams: 05/25/19 05:00 05/25/19 05:00 Microbiology and Other Data: Microbiology 05/24/19 20:40 Nasal Screen MRSA (PCR) - Final Nasal Mrsa Not Detected Assess/Plan/Problems-Billing Mr Ochoa is an 84 yo M who has a h/o Alzheimer's dementia, pacemaker for tachybrady syndrome, HTN and CAD who presented to the ER with c/o abdominal pain and was found to have ongoing facial twitching and twitching/cramping of the chest and abdomen concerning for ongoing seizure activity. EEG done in the ER confirmed the presence of ongoing seizure activity. He was given ativan and loaded with IV valproic acid and admitted to the ICU. 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 Stanford in the ER and again this AM. Currentlyl the patient is somnolent. ? secondary to ativan administration last night for ongoing seizures. He has also recieved multiple doses of IV valproic acid. He is now on valproic acid 500mg IV BID. If the patient does not wake up and show signs that he is not longer having any seizure activity he will need to be transferred to ensure he is not in still in status epilepticus. Will follow the patient closely through the morning. (2) Arrhythmia Current Visit: Yes Status: Acute Code(s): I49.9 - CARDIAC ARRHYTHMIA, UNSPECIFIED SNOMED Code(s): 500163802 Comment: Overnight the patient developed a paced wide complex rhythm. He was not tachycardic. He does not have an ICD in looking at outpatient records. It appears he only has a pacer for tachybrady syndrome. Dr. Singh has been asked to evaluate the rhythm and patient by Dr. Stanford. (3) CAD (coronary artery disease) Current Visit: Yes Status: Acute Code(s): I25.10 - ATHSCL HEART DISEASE OF E[place]M CORONARY ARTERY W/O ANG PCTRS SNOMED Code(s): 57331489 Comment: No new issues. 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 ASA and lipitor are being held due to pt not able to swallow. If that continues will change to rectal ASA. (4) HTN (hypertension) Current Visit: Yes Status: Acute Code(s): I10 - ESSENTIAL (PRIMARY) HYPERTENSION SNOMED Code(s): 93673543 Comment: BP is under acceptable control. Continue IV metoprolol. (5) Alzheimer's dementia Current Visit: Yes Status: Acute Code(s): G30.9 - ALZHEIMER'S DISEASE, UNSPECIFIED; F02.80 - DEMENTIA IN OTH DISEASES CLASSD ELSWHR W/O BEHAVRL DISTURB SNOMED Code(s): 37898728 Comment: Supportive care. (6) DVT prophylaxis Current Visit: Yes Status: Acute Code(s): Z29.9 - ENCOUNTER FOR PROPHYLACTIC MEASURES, UNSPECIFIED SNOMED Code(s): 058168889 Comment: lovenox (7) Full code status Current Visit: Yes Status: Acute Code(s): Z78.9 - OTHER SPECIFIED HEALTH STATUS SNOMED Code(s): 899179932
[2019-05-25] MEDS ORDERED: Metoprolol Tartrate IV* 1 MG/ML 5 ML VIAL IV SCH ×2 (09:00)
[2019-05-25] MEDS ORDERED: Allopurinol TAB* 300 MG PO SCH (09:00)
[2019-05-25] MEDS ORDERED: Valproic Acid IV(*) 500 MG in NS 0.9% 100 ML* 100 ML IVPB SCH (09:00)
[2019-05-25] MEDS ORDERED: Diltiazem CD CAP* 180 MG PO SCH (09:00)
[2019-05-25] MEDS ORDERED: Cholecalciferol TAB* 1000 UNITS PO SCH (09:00)
[2019-05-25] MEDS ORDERED: Aspirin 81 mg CHEW TAB* 81 MG TAB.CHEW PO SCH (09:00)
[2019-05-25] MEDS ORDERED: Cetirizine* 10 MG TAB PO SCH (09:00)
[2019-05-25] MEDS ORDERED: Lisinopril TAB* 10 MG PO SCH (09:00)
[2019-05-25] MEDS ORDERED: Metoprolol Succinate XL TAB* 25 MG PO SCH (09:00)
[2019-05-25] MEDS ORDERED: FLUoxetine CAP* 20 MG PO SCH (09:00)
[2019-05-25] MEDS ORDERED: Fluticasone NASAL SPRAY 50MCG* 16 gm SPRAY BTL BOTH NARES SCH (09:00)
--- NOTE | 2019-05-25 10:06 | PROCNOTE ---
Cardiology Procedure Note 05/25/2019 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
--- NOTE | 2019-05-25 10:31 | CONSULT ---
Subjective Date of Service: 05/25/19 Interval History: Admission Date: 05/24/19 Consult date 05/25/[address] Stefania Diaz Commercial Collections Driver: Dr. Braxton Pederson CHIEF COMPLAINT: Seizures Reason for consult: ? pacemaker malfunction or arrhythmia HISTORY OF PRESENT ILLNESS: Mr. Ochoa is an 84-year-old man with a history as below. He was admitted with seizures and status epilepticus. Patient is currently either postictal and/ or medicated and not able to provide a history. History came from H+P and outpatient records. There were telemetry concerns. I reviewed the strips. There were periods of artifact and/or demand ventricular pacing at LRL of 60 bpm. Pacemaker interrogation (see separate note) was normal. His son is at bedside and this was discussed with him. Pmhx: Alzheimer dementia seizure disorder coronary artery disease medically managed tachybrady syndrome status post pacemaker PAST SURGICAL HISTORY: Pacemaker/ICD implantation cardiac catheterization ALLERGIES: AMOXICILLIN, IBUPROFEN, PENICILLINS. FAMILY HISTORY: The patient's mother of old age at 102. The patient's father in his 50s of a stroke. The patient has 2 sisters, who of Alzheimer's complications. SOCIAL HISTORY: The patient smoked a pipe infrequently throughout his life. The patient drinks occasional alcohol. Never known to have illicit drug use. 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 The patient is for 2 years now, and has 2 children. The patient's surrogate decision maker will be his son MITCHELL Medications Active Medications: Acetaminophen (Tylenol Tab*) 650 mg PO Q6H PRN PRN Reason: MILD PAIN or TEMP > 100.4 Allopurinol (Zyloprim Tab*) 300 mg PO QAM [facility] Aspirin (Aspirin 81 Mg Chew Tab*) 81 mg PO QAM [facility] Atorvastatin Calcium (Lipitor*) 20 mg PO BEDTIME [facility]; Protocol Last Admin: 05/24/19 20:31 Dose: 20 mg Cetirizine HCl (Zyrtec*) 10 mg PO DAILY [facility] Cholecalciferol (Vitamin D Tab*) 2,000 units PO DAILY [facility] Clonazepam (Klonopin Tab(*)) 0.5 mg PO BID [facility] Last Admin: 05/24/19 20:30 Dose: 0.5 mg Diltiazem HCl (Cardizem Cd Cap*) 180 mg PO DAILY [facility] Enoxaparin Sodium (Lovenox(*)) 40 mg SUBCUT Q24H [facility] Last Admin: 05/24/19 18:44 Dose: 40 mg Fluoxetine HCl (Prozac Cap*) 20 mg PO QAM [facility] Fluticasone Propionate (Flonase Nasal [place] 50mcg*) 2 spray BOTH NARES DAILY [facility] Last Admin: 05/25/19 09:27 Dose: 2 spray Valproic Acid 500 mg/ Sodium (Chloride) 105 mls @ 210 mls/hr IVPB Q12HR [facility] Last Admin: 05/25/19 09:28 Dose: 210 mls/hr Lactase (Lactaid Fast Act (Nf)) 3,000 unit PO TID [facility] Last Admin: 05/24/19 20:34 Dose: 3,000 unit Lisinopril (Prinivil Tab*) 20 mg PO QAM [facility] Lorazepam (Ativan Inj*) 1 mg IV PUSH Q10M PRN PRN Reason: Seizures Lorazepam (Ativan Inj*) 1 mg IV PUSH Q4H PRN PRN Reason: ANXIETY Last Admin: 05/24/19 21:39 Dose: 1 mg Memantine (Namenda Tab*) 10 mg PO BID [facility] Last Admin: 05/24/19 20:35 Dose: 10 mg Metoprolol Tartrate (Lopressor Iv*) 5 mg IV Q6H [facility] Last Admin: 05/25/19 09:28 Dose: 5 mg Miscellaneous (Ativan Pyxis [place]) 1 ea N/A .ATIVAN IV [place] PRN PRN Reason: PYXIS [place] Ondansetron HCl (Zofran Inj*) 4 mg IV Q6H PRN PRN Reason: NAUSEA Home Medications: Allopurinol TAB* [Zyloprim TAB*] 300 mg PO QAM 09/17/13 [History Confirmed 05/24] Aspirin 81 mg CHEW TAB* [Aspirin Low Dose TAB*] 81 mg PO QAM 09/17/13 [History Confirmed 05/24/19] FLUoxetine CAP* [Prozac CAP*] 20 mg PO QAM 09/17/13 [History Confirmed 05/24/19] Lisinopril TAB* [Prinivil TAB*] 20 mg PO QAM 09/17/13 [History Confirmed ] Pravastatin (NF) [Pravachol (NF)] 80 mg PO BEDTIME 09/17/13 [History Confirmed 05/24/19] Acetaminophen [Tylenol] 650 mg PO BID 05/05/19 [History Confirmed 05/24/19] Cetirizine HCl [Zyrtec] 10 mg PO DAILY 05/05/19 [History Confirmed 05/24/19] Cholecalciferol (Vitamin D3) [Vitamin D3] 2,000 unit PO DAILY 05/05/19 [History Confirmed 05/24/19] Fluticasone NASAL SPRAY 50MCG* [Flonase NASAL SPRAY 50MCG*] 2 spray BOTH NARES DAILY 05/05/19 [History Confirmed 05/24/19] Lactase [Dairy Aid] 3,000 unit PO TID 05/05/19 [History Confirmed 05/24/19] Valproic Acid 250 mg PO QPM 30 Days #30 capsule 05/05/19 [Rx Confirmed 05/24/19] dilTIAZem HCl [Dilt-Xr] 180 mg PO DAILY 05/05/19 [History Confirmed 05/24/19] Memantine TAB* [Namenda TAB*] 10 mg PO BID 05/24/19 [History Confirmed 05/24/19] Metoprolol Succinate XL TAB* [Toprol XL TAB*] 25 mg PO DAILY 05/24/19 [History Confirmed 05/24/19] Phenol [Chloraseptic] 177 ml PO DAILY PRN 05/24/19 [History Confirmed 05/24/19] Saline NASAL SPRAY 0.65%* [Sodium Chloride 0.65% Nasal [place]*] 1 spray BOTH NARES Q4H PRN 05/24/19 [History Confirmed 05/24/19] Review of Systems - Measurements Intake and Output: Intake and Output Last 24 Hours 05/23/19 05/24/19 05/25/19 05/26/19 06:59 06:59 06:59 06:59 Intake Total 410 Output Total 2299 595 Balance -1889 -595 Weight 158 lb 15.253 oz Intake: IV Fluids 300 IVPB 110 Output: Urine 175 Moore 1125 595 Residual 999 16 Fr Temperature Probe 999 Other: Estimated Void Small # Voids 1 - Review of Systems General Comments: not obtainable due to patients mental status Objective Vital Signs: Temp Pulse Resp BP Pulse Ox 97.6 F 60 13 156/90 99 05/25/19 08:00 05/25/19 10:01 05/25/19 10:01 05/25/19 10:01 05/25/19 10:01 Oxygen Devices in Use Now: Nasal Cannula Appearance: patient does not appear in pain or distressed Ears/Nose/Mouth/Throat: Clear Oropharnyx, Mucous Membranes Moist Neck: NL Appearance and Movements; NL JVP, Trachea Midline Respiratory: Symmetrical Chest Expansion and Respiratory Effort, Clear to Auscultation Cardiovascular: NL Sounds; No Murmurs; No JVD, RRR, No Edema, - - pacemaker site intact Abdominal: NL Sounds; No Tenderness; No Distention Extremities: No Edema, No Clubbing, Cyanosis Skin: No Rash or Ulcers Neurological: - - patient currently not communicating or awake Laboratory Results: 05/25/19 05:00 05/25/19 05:00 Total Bilirubin 0.50 mg/dL (0.2-1.0) 05/24/19 12:21 AST 19 U/L (13-39) 05/24/19 12:21 ALT 23 U/L (7-52) 05/24/19 12:21 Alkaline Phosphatase 80 U/L (34-104) 05/24/19 12:21 Total Protein 6.4 g/dL (6.4-8.9) 05/24/19 12:21 Albumin 4.1 g/dL (3.2-5.2) 05/24/19 12:21 Globulin 2.3 g/dL (2-4) 05/24/19 12:21 Albumin/Globulin Ratio 1.8 (1-3) 05/24/19 12:21 05/24/19 05/25/19 12:21 07:59 Troponin I 0.00 0.00 Diagnostic Imaging: echo 04/2019 mild LVH, LVEF 55-60%, no significant valvular abnormalities noted. cardiac catheterization 10/2004: mid to distal 70% LAD lesion with superimposed spasm treated medically 02/2015: Lexiscan stress MPI normal. 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 Please do not hesitate to contact me with questions or concerns.
[2019-05-25] MEDS: clonazePAM TAB(*) 0.5 MG PO SCH (10:50)
[2019-05-25] MEDS: CMCS: Lactase Enzyme (NF) 3,000 UNIT TAB PO SCH (10:51)
[2019-05-25] MEDS: Memantine TAB* 10 MG PO SCH (10:52)
[2019-05-25] MEDS ORDERED: cefTRIAXone(*) 1 GM in NS 0.9% 50 ML* 50 ML IVPB ONE (13:44)
[2019-05-25 14:03] VITALS: BP 142/79
--- NOTE | 2019-05-25 14:29 | TRS ---
CC: Dr. Diaz* TRANSFER SUMMARY: DATE OF ADMISSION: 05/24/19 DATE OF TRANSFER: 05/25/19 PRIMARY CARE PROVIDER: Dr. Diaz. PRINCIPAL DIAGNOSIS: Probable partial status epilepticus. SECONDARY DIAGNOSES: 1. Alzheimer's dementia. 2. History of tachybrady syndrome, status post pacemaker insertion. 3. Hypertension. 4. Coronary artery disease. DISCHARGE MEDICATIONS: 1. Normal saline at 100 mL per hour. 2. Depakote 500 mg IV q.12 hours. 3. Metoprolol tartrate 5 mg IV q.6 hours. 4. Zofran 4 mg IV q.6 hours p.r.n. nausea. 5. Ativan 1 mg IV q.10 minutes p.r.n. seizures lasting over 7 minutes, up to 3 doses. 6. Ativan 1 mg IV q.4 hours p.r.n. anxiety. 7. Lovenox 40 mg subcutaneous daily. Medications currently on hold as the patient is not alert enough to swallow: 1. Tylenol 650 mg p.o. q.6 hours. 2. Allopurinol 300 mg p.o. daily. 3. Aspirin 81 mg p.o. daily. 4. Lipitor 20 mg p.o. at bedtime. 5. Zyrtec 10 mg p.o. daily. 6. Vitamin D 2000 units p.o. daily. 7. Klonopin 0.5 mg p.o. b.i.d. 8. Diltiazem CD 180 mg p.o. daily. 9. Fluoxetine 20 mg p.o. daily. 10. Flonase 2 squirts to both nostrils daily. 11. Lactaid 3000 units p.o. t.i.d. a.c. 12. Lisinopril 20 mg p.o. daily. 13. Namenda 10 mg p.o. b.i.d. HOSPITAL COURSE: Mr. 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 Several weeks ago, it was decided that this should be slowly tapered. As the patient was tapering off, he was noted to have facial twitching. The patient was brought to the emergency room 2 to 3 weeks ago for this and was felt to be having myoclonic jerking. He was started on Depakote and resumed Klonopin to again slowly taper. The patient tapered Klonopin to off about 1 week ago. He has since been having facial twitching. On 05/24/19, the twitching involved his chest and upper abdomen and the patient was complaining of abdominal pain. For the abdominal pain, the patient was sent to the emergency room. Because of the twitching, EEG was performed which revealed ongoing seizure activity. The patient received Ativan and had improvement in his twitching. The patient was also loaded with IV Depakote. Overnight from 05/24/19 into 05/25/19, the patient again had episode of severe facial twitching. The overnight hospitalist contacted Dr. Stanford who recommended giving another dose of IV Depakote and Ativan. Since the morning of 05/25/19, the patient has been somnolent. He is not awakening to voice or light touch. At this point, it is unclear whether or not the patient has underlying nonconvulsive status epilepticus and for this reason, the patient is being transferred to [facility] for advanced neurologic services including long-term EEG monitoring. The patient is stable at the time of transfer, though he is somnolent. FOLLOWUP CONCERNS: The patient is being transferred to [facility] today , 05/25/19. ACTIVITY: Activity level is bedrest. CONDITION ON DISCHARGE: Guarded, but stable. DIET: NPO while somnolent. TIME SPENT: Thirty five minutes was spent on this transfer. [id number]/CPS #: [id number] MTDD
== END 2019-05-25 15:10 | disposition short-term general hospital (02) | DRG 101 ==
LOC: ED 11:52 → ICU 16:26 → OBSVTOIN 05-25 11:00
PROVIDERS: ADMIT Internal Medicine; ATTEND Hospitalist
PROC: 4A00X4Z Measurement of Central Nervous Electrical Activity, External Approach (ICD-10-PCS; 2019-05-24)
PROC: 4B02XSZ Measurement of Cardiac Pacemaker, External Approach (ICD-10-PCS; principal; 2019-05-25)
DX: G40.111 Localization-related (focal) (partial) symptomatic epilepsy and epileptic syndromes with simple partial seizures, intractable, with status epilepticus (principal); G30.9 Alzheimer's disease, unspecified; F02.80 Dementia in other diseases classified elsewhere, unspecified severity, without behavioral disturbance, psychotic disturbance, mood disturbance, and anxiety; I49.5 Sick sinus syndrome; I10 Essential (primary) hypertension; I25.10 Atherosclerotic heart disease of native coronary artery without angina pectoris; R25.3 Fasciculation; I71.2 Thoracic aortic aneurysm, without rupture; M15.0 Primary generalized (osteo)arthritis; H26.9 Unspecified cataract; Z95.0 Presence of cardiac pacemaker; Z79.01 Long term (current) use of anticoagulants; Z79.82 Long term (current) use of aspirin; Z95.5 Presence of coronary angioplasty implant and graft; Z87.442 Personal history of urinary calculi; Z88.0 Allergy status to penicillin; Z88.6 Allergy status to analgesic agent; Z82.3 Family history of stroke; Z82.0 Family history of epilepsy and other diseases of the nervous system; Z72.89 Other problems related to lifestyle; Z72.0 Tobacco use; Z97.4 Presence of external hearing-aid
CPT/HCPCS: 36415; 70450; 74177; 80048; 80053; 80164; 81003; 81015; 82550; 83690; 83735; 84484; 85025; 86140; 87077; 87086; 87186; 87641; 93005; 95816; 99285; A9270-GY; G0378; J0696; J1650; J2060; J3420; J3475; J3490; Q9967